=== PATIENT | female | born 1990 | race Native Hawaiian/Other Pacific Islander ===

== ENCOUNTER 2018-11-15 04:52 | Emergency (ER) | payer OTHER ==
[2018-11-15 04:58] VITALS: BP 131/40
[2018-11-15 05:25] LABS: Basophils % (Auto) 0.3 % (0.0-1.8); Eosinophils # (Auto) 0.1 K/mm3 (0.0-0.4); Hematocrit 39.6 % (30.3-42.9); Hemoglobin 13.2 gm/dl (10.1-14.3); Lymphocytes # (Auto) 1.5 K/mm3 (1.2-5.4); Lymphocytes % (Auto) 13.7 % (13.4-35.0); Mean Corpuscular HGB Conc 33 % (30-34); Mean Corpuscular Hemoglobin 28 pg (28-32); Mean Corpuscular Volume 84 fl (79-97); Monocytes # (Auto) 0.7 K/mm3 (0.0-0.8); Monocytes % (Auto) 6.2 % (0.0-7.3); Red Blood Count 4.73 M/mm3 (3.65-5.03); Red Cell Distribution Width 15.3 % (13.2-15.2)
[2018-11-15 06:03] LABS: Bilirubin,Urine NEG (Negative); Blood,Urine MOD (Negative); Color,Urine Yellow (Yellow); Protein,Urine <15 mg/dL mg/dL (Negative); Urobilinogen,Urine < 2.0 mg/dL (<2.0)
[2018-11-15 06:36] LABS: Platelet Count 231 K/mm3 (140-440)
--- NOTE | 2018-11-15 06:50 | Ultrasound Report ---
ULTRASOUND OBSTETRIC INDICATION: Pelvic pain. Vaginal bleeding. Clinical gestational age of 9 weeks, 3 days. TECHNIQUE: Transabdominal and Transvaginal. COMPARISON: None available. FINDINGS: GESTATIONAL SAC: Well-defined oval shape and intrauterine in location. YOLK SAC: No significant abnormality. EMBRYO/FETUS: No significant abnormality. - [place]-Rump Length = 0.18 cm = 8 weeks, 2 day(s). - Heart Rate = 169 beats per minute. ADNEXA: The right ovary appears unremarkable. The left ovary is not identified. FREE FLUID: None. ADDITIONAL FINDINGS: There is a small area of subchorionic hemorrhage measuring 2.0 x 0.9 x 1.3 cm. IMPRESSION: 1. Single, living intrauterine with estimated sonographic age of 8 weeks, 3 day(s). 2. Small subchorionic hemorrhage measuring up to 2 cm. Signer Name: Vernon Dozier MD Signed: 11/15/2018 6:46 AM Workstation Name: [id number]
--- NOTE | 2018-11-15 06:50 | Ultrasound Report ---
ULTRASOUND OBSTETRIC INDICATION: Pelvic pain. Vaginal bleeding. Clinical gestational age of 9 weeks, 3 days. TECHNIQUE: Transabdominal and Transvaginal. COMPARISON: None available. FINDINGS: GESTATIONAL SAC: Well-defined oval shape and intrauterine in location. YOLK SAC: No significant abnormality. EMBRYO/FETUS: No significant abnormality. - [place]-Rump Length = 0.18 cm = 8 weeks, 2 day(s). - Heart Rate = 169 beats per minute. ADNEXA: The right ovary appears unremarkable. The left ovary is not identified. FREE FLUID: None. ADDITIONAL FINDINGS: There is a small area of subchorionic hemorrhage measuring 2.0 x 0.9 x 1.3 cm. IMPRESSION: 1. Single, living intrauterine with estimated sonographic age of 8 weeks, 3 day(s). 2. Small subchorionic hemorrhage measuring up to 2 cm. Signer Name: Vernon Dozier MD Signed: 11/15/2018 6:46 AM Workstation Name: [id number]
--- NOTE | 2018-11-15 07:47 | Emergency Department Report ---
ED Female HPI - General Chief complaint: Vaginal Bleeding Stated complaint: /BLEEDING Time Seen by Provider: 11/15/18 05:25 Source: patient Mode of arrival: Ambulatory Limitations: No Limitations - History of Present Illness Initial comments: This is a 28-year-old female who presents with vaginal bleeding that started 30 minutes prior to arrival to the ED. Patient states she was at work when suddenly she started to notice vaginal bleeding. Patient states that she had a positive test at home oblique ago. She has not had an official confirmation yet in no care at this time. She admitted abdominal cramping earlier but not at the moment. Patient states her last menstrual period was sometime in August which she is unsure of the exact date. Patient states that bleeding is a bit setter cold rolling machine now. She denies fevers/chills w ith nausea vomiting/diarrhea/dysuria Complaint: vaginal bleeding - Related Data Allergies Allergy/AdvReac Type Severity Reaction Status Date / Time No Known Allergies Allergy Unverified 11/15/18 04:58 ED Review of Systems ROS: Stated complaint: /BLEEDING Other details as noted in HPI Comment: All other systems reviewed and negative ED Past Medical Hx - Past Medical History Previous Medical History?: No - Surgical History Past Surgical History?: No - Social History Smoking Status: Never Smoker Substance Use Type: None ED Physical Exam - General Limitations: No Limitations General appearance: alert, in no apparent distress - Head Head exam: Present: atraumatic, normocephalic - Eye Eye exam: Present: normal appearance - ENT ENT exam: Present: mucous membranes moist - Neck Neck exam: Present: normal inspection - Respiratory Respiratory exam: Present: normal lung sounds bilaterally. Absent: respiratory distress - Cardiovascular Cardiovascular Exam: Present: regular rate, normal rhythm. Absent: systolic murmur, diastolic murmur, rubs, gallop - GI/Abdominal GI/Abdominal exam: Present: soft, normal bowel sounds. Absent: distended, tenderness, guarding, rebound, mass, bruit - Extremities Exam Extremities exam: Present: normal inspection - Back Exam Back exam: Present: normal inspection - Neurological Exam Neurological exam: Present: alert, oriented X3 - Psychiatric Psychiatric exam: Present: normal affect, normal mood - Skin Skin exam: Present: warm, dry, intact, normal color. Absent: rash ED Course Vital Signs 11/15/18 04:54 Temperature 98.3 F Pulse Rate 84 Respiratory 16 Rate Blood Pressure 131/40 O2 Sat by Pulse 100 Oximetry ED Medical Decision Making - Lab Data Result diagrams: 11/15/18 05:07 - Radiology Data Radiology results: report reviewed, image reviewed INDICATION: Pelvic pain. Vaginal bleeding. Clinical gestational age of 9 weeks, 3 days. TECHNIQUE: Transabdominal and Transvaginal. COMPARISON: None available. FINDINGS: GESTATIONAL SAC: Well-defined oval shape and intrauterine in location. YOLK SAC: No significant abnormality. EMBRYO/FETUS: No significant abnormality. - [place]-Rump Length = 0.18 cm = 8 weeks, 2 day(s). - Heart Rate = 169 beats per minute. ADNEXA: The right ovary appears unremarkable. The left ovary is not identified. FREE FLUID: None. ADDITIONAL FINDINGS: There is a small area of subchorionic hemorrhage measuring 2.0 x 0.9 x 1.3 cm. IMPRESSION: 1. Single, living intrauterine with estimated sonographic age of 8 weeks, 3 day(s). 2. Small subchorionic hemorrhage measuring up to 2 cm. Signer Name: Vernon Dozier MD Signed: 11/15/2018 6:46 AM Workstation Name: [id number] Transcribed By: MN Dictated By: Vernon Dozier MD Electronically Authenticated By: Vernon Dozier MD Signed Date/Time: 11/15/18 0646 - Medical Decision Making 28-year-old female presents to ED with threatened miscarriage with vaginal bleeding and ED course: Pt received ultra sound, CBC, urinalysis, test and quantitative ED All labs within normal limits, quantitative elevated matching gestation age Patient states that bleeding is setter cold rolling machine than when she arrived to the ED Patient is not being seen by MEDICAL INVESTIGATOR yet. Referrals given for [facility] as well as the [facility] MEDICAL INVESTIGATOR. Ultrasound shows single intrauterine at 8 weeks and 4 days .see reported above Vital signs normalized patient is in no acute distress. I discussed with the patient if follow-up with her MEDICAL INVESTIGATOR. I discussed all labs and ultrasound findings with the patient. I discussed with the patient that he if bleeding worsens or new symptoms develop to return to ED immediately Critical care attestation.: If time is entered above; I have spent that time in minutes in the direct care of this critically ill patient, excluding procedure time. ED Disposition Clinical Impression: Vaginal bleeding in Disposition: DC-01 TO HOME OR SELFCARE Is pt being admited?: No Does the pt Need Aspirin: No Condition: Stable Instructions: (ED), Threatened Miscarriage (ED) Additional Instructions: Make sure to follow up with the MEDICAL INVESTIGATOR as discussed. She is to purchase vitamins to start taking that daily time of If you have any worsening symptoms or develop new symptoms please return to ED immediately. Referrals: PRIMARY CARE, [Primary Care Provider] - 3-5 Days [facility] [Provider Group] - 3-5 Days [facility] [Provider Group] - 3-5 Days Forms: Work/School Release Form(ED) Time of Disposition: 07:59
== END 2018-11-15 08:18 | disposition home or self-care (01) ==
LOC: ED 04:52
DX: O20.9 Hemorrhage in early pregnancy, unspecified (principal); Z3A.08 8 weeks gestation of pregnancy
CPT/HCPCS: 36415; 76801; 76817; 81001; 84702; 84703; 85025; 99284

== ENCOUNTER 2018-12-13 03:04 | Emergency (ER) | payer OTHER ==
[2018-12-13] MEDS ORDERED: TYLENOL PO ONE (05:18)
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
[2018-12-13] MEDS ORDERED: NORCO 5/325 PO STA (07:38)
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
[2018-12-13 11:24] VITALS: BP 114/76
== END 2018-12-13 11:25 | disposition home or self-care (01) ==
LOC: ED 03:04
DX: S92.141A Displaced dome fracture of right talus, initial encounter for closed fracture (principal); M54.9 Dorsalgia, unspecified; V49.49XA Driver injured in collision with other motor vehicles in traffic accident, initial encounter; Y93.89 Activity, other specified; Y92.410 Unspecified street and highway as the place of occurrence of the external cause; Y99.8 Other external cause status
CPT/HCPCS: 71045; 72040; 76801

== ENCOUNTER 2019-06-10 00:12 | Outpatient (CLI) | payer OTHER ==
[2019-06-10 00:27] VITALS: BP 149/66
== END 2019-06-10 01:40 | disposition home or self-care (01) ==
LOC: TRG 00:12
PROVIDERS: ATTEND Obstetrics & Gynecology
DX: O42.913 Preterm premature rupture of membranes, unspecified as to length of time between rupture and onset of labor, third trimester (principal); Z3A.39 39 weeks gestation of pregnancy
CPT/HCPCS: 59025; Q0177

== ENCOUNTER 2019-06-10 03:45 | Inpatient (IN) | payer OTHER ==
[2019-06-10] MEDS: OXYTOCIN 20 UNIT/1000ML DRIP 20 UNITS/1,000 ML BAG IV SCH ×2 (04:25→07:16)
--- NOTE | 2019-06-10 04:38 | History and Physical Report ---
History of Present Illness Date of examination: 06/10/19 Date of admission: 06/10/19 03:47 Chief complaint: contractions Past History - Obstetrical History : 3 Medications and Allergies Allergies Allergy/AdvReac Type Severity Reaction Status Date / Time No Known Allergies Allergy Verified 06/10/19 00:44 Home Medications Medication Instructions Recorded Confirmed Last Taken Type Acetaminophen/Codeine [Tylenol #3] 1 tab PO Q6H PRN #15 tab 12/13/18 Unknown Rx - Vital Signs Vital signs: Vital Signs Pulse BP 129 H 146/77 06/10/19 03:51 06/10/19 03:51 Temp Pulse Resp BP Pulse Ox 110 H 122/67 06/10/19 04:26 06/10/19 04:26 Results All other labs normal.
--- NOTE | 2019-06-10 04:42 | Procedure Note ---
OB Delivery Note - Delivery Date of Delivery: 06/10/19 Surgeon: MARYBETH FRANKLIN Estimated blood loss: 100cc - Vaginal Delivery presentation: vertex Delivery position: OA Intrapartum events: precipitous labor- <3hr Delivery monitor: external FHT Route of delivery: Delivery placenta: spontaneous Delivery cord: 3 umbilical vessels Episiotomy: none Delivery laceration: none Anesthesia: none Delivery comments: The patient presented to labor and delivery in active labor and advanced cervical dilatation of 9 cm. She progressed rapidly and had a spontaneous vaginal delivery of a liveborn male infant with Apgars of 8 and 9 weight 8 pounds 3 ounces. The delivery was attended labor and delivery nurse. The shoulders delivered without difficulty. The cord was clamped and cut x2 and the infant was placed on the patient's abdomen. The placenta delivered spontaneously intact with a three-vessel cord. No lacerations were noted. Estimated blood loss 100 mL - Infant A at 1 minute: 8 at 5 minutes: 9 Gender: Male (weight 8lbs 3oz)
[2019-06-10] MEDS ORDERED: IBUPROFEN 600 MG TAB PO SCH ×2 (06:00→08:00)
[2019-06-10] MEDS ORDERED: OXYTOCIN 20 UNIT/1000ML DRIP 20 UNITS/1,000 ML BAG IV SCH (06:00)
[2019-06-10] MEDS: IBUPROFEN 600 MG TAB PO SCH ×3 (06:20→23:56)
[2019-06-10] MEDS: HYDROcodone/ACETAMINOPHEN 5-325 MG TAB PO PRN (07:44)
[2019-06-10] MEDS ORDERED: ONDANSETRON 4 MG/2 ML INJ IV PRN (08:00)
[2019-06-10] MEDS ORDERED: PROMETHAZINE 25 MG TAB PO PRN (08:00)
[2019-06-10] MEDS ORDERED: WITCH HAZEL/ GLYCERIN PAD TP PRN (08:00)
[2019-06-10] MEDS ORDERED: LANOLIN/ZINC/DIMETHICONE (LANSINOH) 7 GM TP PRN (08:00)
[2019-06-10] MEDS ORDERED: PROMETHAZINE 25 MG RECT SUPP PR PRN (08:00)
[2019-06-10] MEDS ORDERED: diphenhydrAMINE 25 MG CAP PO PRN (08:00)
[2019-06-10] MEDS ORDERED: ACETAMINOPHEN 325 MG TAB PO PRN (08:00)
[2019-06-10 08:19] LABS: Hematocrit 34.5 % (30.3-42.9); Hemoglobin 10.8 gm/dl (10.1-14.3)
[2019-06-10 12:18] LABS: Hematocrit 28.9 % (30.3-42.9); Hemoglobin 9.3 gm/dl (10.1-14.3); Mean Corpuscular HGB Conc 32 % (30-34); Mean Corpuscular Volume 76 fl (79-97); Platelet Count 263 K/mm3 (140-440); Red Cell Distribution Width 17.1 % (13.2-15.2)
[2019-06-10] MEDS ORDERED: MAGNESIUM HYDROXIDE (MOM) ORAL LIQD UDC PO PRN (22:00)
[2019-06-11] MEDS: IBUPROFEN 600 MG TAB PO SCH (05:53)
[2019-06-11] MEDS ORDERED: TETANUS,DIPH,PERTUSS(ACELL) VACCINE 0.5 ML SYRINGE IM ONE (06:00)
--- NOTE | 2019-06-11 08:16 | Progress Note ---
Assessment and Plan A: PPD#1 s/p at term, Morbid Obesity, Acute on chronic anemia P: Routine care. Per pt request, discharge later today Subjective - Subjective Date of service: 06/11/19 Principal diagnosis: s/p at term Interval history: Pt asks to be discharged today if possible. No overnight events. Patient reports: appetite normal, voiding normally, pain well controlled, ambulating normally Spraggs: doing well Objective - Vital Signs Latest vital signs: Vital Signs Temp Pulse Resp BP Pulse Ox 06/11/19 01:14 98.2 F 72 20 120/78 98 06/10/19 12:52 98.3 F 88 15 107/53 99 Intake and Output 06/10/19 06/11/19 06/11/19 22:59 06:59 14:59 Intake Total 240 Balance 240 Intake: Oral 240 Other: Total, Intake Amount 240 # Voids Void 1 - Exam Breasts: Present: deferred Cardiovascular: Present: Regular rate Lungs: Present: Clear to auscultation Abdomen: Present: soft (obese) Uterus: Present: fundal height below umbilicus Extremities: Present: edema (trace) - Labs Labs: Abnormal lab results 06/10/19 Range/Units 11:40 WBC 16.3 H (4.5-11.0) K/mm3 Hgb 9.3 L (10.1-14.3) gm/dl Hct 28.9 L (30.3-42.9) % MCV 76 L (79-97) fl MCH 25 L (28-32) pg RDW 17.1 H (13.2-15.2) %
--- NOTE | 2019-06-11 08:21 | Discharge Summary ---
Providers - Providers Date of Admission: 06/10/19 03:47 Date of discharge: 06/11/19 Attending physician: MARYBETH FRANKLIN Primary care physician: MARYBETH FRANKLIN Hospitalization Reason for admission: active labor Delivery: Procedure details: Please see delivery note. Episiotomy: none Laceration: none Other procedures: none complications: none Discharge diagnosis: IUP at term delivered [place] baby: male Hospital course: Patient was admitted in active labor and went on to have a spontaneous vaginal delivery which she tolerated well. The remainder of her course was uncomplicated and she met discharge criteria on day #1. She will follow-up in 4 weeks in the office. Condition at discharge: Stable Disposition: - TO HOME OR SELFCARE - Discharge Diagnoses (1) Term of male Status: Acute (2) Morbid obesity Status: Acute (3) Acute on chronic anemia Status: Acute (4) Normal spontaneous vaginal delivery Status: Acute Plan - Discharge Medications Prescriptions: Ferrous Sulfate [Feosol 325 MG tab] 325 mg PO BID #60 tablet Ibuprofen [Motrin] 800 mg PO Q8HR PRN #30 tablet PRN Reason: Pain , Severe (7-10) HYDROcodone/APAP 5-325 [Organ 5/325] 1 each PO Q6HR PRN #20 tablet PRN Reason: Pain - Provider Discharge Summary Activity: routine, no sex for 6 weeks, no heavy lifting 4 weeks, no strenuous exercise Diet: routine Instructions: routine Additional instructions: [] Smoking cessation referral if applicable(refer to patient education folder for contact #) [] Refer to [facility] Booklet Call your doctor immediately for: * Fever > 100.5 * Heavy vaginal bleeding ( >1 pad per hour) * Severe persistent headache * Shortness of breath * Reddened, hot, painful area to leg or breast * Drainage or odor from incision. * Keep incision clean and dry at all times and follow doctor's instructions regarding bathing/showering - Follow up plan Follow up: GAY PATTERSON CNM [Advanced Practice Nurse] - 07/08/19 (Please call to schedule your appt. Please schedule your son's circumcision before he is one month old. )
[2019-06-11] MEDS: HYDROcodone/ACETAMINOPHEN 5-325 MG TAB PO PRN (18:29)
[2019-06-12] MEDS: IBUPROFEN 600 MG TAB PO SCH (05:12)
[2019-06-12 19:50] VITALS: BP 118/65
== END 2019-06-12 12:30 | disposition home or self-care (01) | DRG 775 ==
LOC: TRG 03:45 → LD 03:47 → OB 08:24
PROVIDERS: ADMIT Obstetrics & Gynecology; ATTEND Obstetrics & Gynecology
PROC: 10E0XZZ Delivery of Products of Conception, External Approach (ICD-10-PCS; principal; 2019-06-10)
PROC: 3E0234Z Introduction of Serum, Toxoid and Vaccine into Muscle, Percutaneous Approach (ICD-10-PCS; 2019-06-11)
DX: O62.3 Precipitate labor (principal); O99.214 Obesity complicating childbirth; E66.01 Morbid (severe) obesity due to excess calories; O99.02 Anemia complicating childbirth; Z37.0 Single live birth; Z3A.39 39 weeks gestation of pregnancy; Z23 Encounter for immunization
CPT/HCPCS: 36415; 85014; 85018; 85027; 86592; 86706; 86762; 86850; 86900; 86901; 87806; 90471; G0378; J2590